=== PATIENT | male | born 1975 | race Caucasian/White ===

== ENCOUNTER → 2021-02-14 14:27 | Outpatient (CLI) | payer OTHER, SELFPAY ==
--- NOTE | ~2021-02-14 | MR_ITS ---
EXAMINATION: MR brain/brain stem wo con EXAM DATE: 02/14/2021 15:12 INDICATION: Frontal headaches for couple of months. TECHNIQUE: Magnetic resonance imaging (MRI) of the brain/brain stem obtained without contrast. Becca al T1, axial diffusion, gradient echo (T2*), T1, T2, FLAIR sequences obtained. There is no prior st udy for comparison. FINDINGS: There are no areas of restricted diffusion to suggest acute infarction. There is no acute hemorrhage seen on the T2*, a hemosiderin sensitive sequence. No intraparenchymal brain mass. The ve ntricles are normal in size. There are no extra-axial collections. Flow voids are seen in the cereb ral arteries on the T2-weighted sequences consistent with their expected patency. The orbits are unr emarkable. Soft tissue is unremarkable. IMPRESSION: 1. Unremarkable brain MRI examination. Reviewed, dictated and finalized at location A.
== END ==
PROVIDERS: PCP Family Medicine; Visit Provider Nurse Practitioner Family
DX: R51.9 Headache, unspecified (principal)
CPT/HCPCS: 70551

== ENCOUNTER 2024-07-01 02:12 | Day surgery (SDC) | payer OTHER, SELFPAY ==
[2024-06-10 15:22] VITALS: BMI 34.0
[2024-07-01 12:13] VITALS: BP 153/108; PULSE 95; RESP 18; TEMP 36.5; O2SAT 99
[2024-07-01] MEDS: LACTATED RINGERS 1,000 ML 150 ML IV CONT (12:22)
--- NOTE | 2024-07-01 12:59 | PM.HPGS ---
History of Present Illness History of Present Illness Consent: Risks, benefits, and alternatives have been discussed and questions answered. Patient agrees to proceed with procedure. Chief complaint: neoplasm screening Narrative: Trevor Pepper III is a 48 year old male here for first screening colonoscopy Review of Systems Review of Systems: All systems reviewed & are unremarkable except as noted in HPI and below PMFSH Past Medical History Medical History (Updated 11/30/23 @ 10:22 by SANTOSH Arriola) BMI 31.0-31.9,adult BMI 34.0-34.9,adult Eye pressure Vision changes Family History Family History Father COPD (chronic obstructive pulmonary disease) Diabetes mellitus Hypertension Tobacco abuse Mother Hypertension Hyperlipidemia Sibling No problems noted. Social History Social History Smoking status: Former smoker Smokeless tobacco user: other Second hand tobacco smoke exposure: Yes Smoking end date: 11/26/09 Alcohol intake: current Drinks per week: 5 Alcohol use details: DRINKS Substance use: never Substance use type: does not use Lack of Transportation: No Lack of Food: Never True Current Housing: I Have Housing Concerned About Future Housing: No Difficulty Paying Gas/Electric Bills: No Difficulty Paying for Meds: No Currently Unemployed: No Education: Master's Degree or Higher Difficulty w/ Childcare or Family Care: No Living arrangements: with family Occupation/Education: occupation 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) Gender identity (if verbalized by the patient): Male Spiritual care concerns: No Meds Home Medications and Allergies Home Medications Medication Instructions Recorded Confirmed Type buspirone 15 mg tablet 15 mg PO BID #60 tabs 02/04/24 07/01/24 Rx simvastatin 10 mg tablet See Rx Instructions .Route 04/06/24 07/01/24 Rx .COMPLEX #90 tabs testosterone 2 pump topical DAILY #75 grams 05/22/24 07/01/24 Rx mecobalamin (vitamin B12) 100 mcg PO DAILY 06/10/24 07/01/24 History multivitamin with minerals-folic 1 tablet PO DAILY 06/10/24 07/01/24 History acid 0.4 mg tablet alprazolam 0.5 mg tablet 0.5 mg PO QHS PRN anxiety #20 tabs 06/12/24 07/01/24 Rx Allergies Allergy/AdvReac Type Severity Reaction Status Date / Time No Known Allergies Allergy Verified 07/01/24 12:12 Vital Signs Vital Signs - 24 hr 07/01/24 12:13 Temperature 97.7 F Pulse Rate 95 Respiratory Rate 18 Blood Pressure 153/108 H Pulse Oximetry 99 Oxygen Delivery Room Air Exam Const: General: comfortable and no acute distress HENMT: Face/Nose/Sinus: Normal nares present Eyes: General: appearance normal, both eyes and all related structures Neck: Neck: no JVD Resp: Auscultation: clear to auscultation bilaterally Cardio: Rate: regular rate Rhythm: regular rhythm GI: Inspection: non-distended GI Palp: Yes Soft to palpation Skin: General skin exam: normal color Neuro: General: gait normal Speech: normal speech Extrem: General: normal to inspection Psych: Mental Status: mental status grossly normal Assessment and Plan Assessment and plan (1) Screen for colon cancer: Code(s): Z12.11 - Encounter for screening for malignant neoplasm of colon Status: Acute Assessment and Plan: colonoscopy
--- NOTE | 2024-07-01 13:07 | WPDANESEPP ---
Anes - Eval Pre Procedure Procedure: Operation Date: 07/01/24 13:30 Proposed Procedures p Screening Colonoscopy - Juma Charles MD Date/Time: 07/01/24 13:07 Pre Op Diagnosis: neoplasm screening Patient Data Age: 48 Gender: M Height: 1.75 m Weight: 103.2 kg Last Vital Signs Temp 36.5 C 07/01/24 12:13 Pulse 95 07/01/24 12:13 Resp 18 07/01/24 12:13 BP 153/108 H 07/01/24 12:13 Pulse Ox 99 07/01/24 12:13 O2 Del Method Room Air 07/01/24 12:13 Allergies Allergy/AdvReac Type Severity Reaction Status Date / Time No Known Allergies Allergy Verified 07/01/24 12:12 Home Medications Medication Instructions Recorded Confirmed Type buspirone 15 mg tablet 15 mg PO BID #60 tabs 02/04/24 07/01/24 Rx simvastatin 10 mg tablet See Rx Instructions .Route 04/06/24 07/01/24 Rx .COMPLEX #90 tabs testosterone 2 pump topical DAILY #75 grams 05/22/24 07/01/24 Rx mecobalamin (vitamin B12) 100 mcg PO DAILY 06/10/24 07/01/24 History multivitamin with minerals-folic 1 tablet PO DAILY 06/10/24 07/01/24 History acid 0.4 mg tablet alprazolam 0.5 mg tablet 0.5 mg PO QHS PRN anxiety #20 tabs 06/12/24 07/01/24 Rx Patient hx anesthesia problems: none Family hx anesthesia problems: none Results Review: All pre-operative results and documents have been reviewed as part of the pre-operative evaluation. [facility] Past Medical History Medical History (Updated 11/30/23 @ 10:22 by SANTOSH Arriola) BMI 31.0-31.9,adult BMI 34.0-34.9,adult Eye pressure Vision changes Family History Family History Father COPD (chronic obstructive pulmonary disease) Diabetes mellitus Hypertension Tobacco abuse Mother Hypertension Hyperlipidemia Sibling No problems noted. Social History Social History Smoking status: Former smoker Smokeless tobacco user: other Second hand tobacco smoke exposure: Yes Smoking end date: 11/26/09 Alcohol intake: current Drinks per week: 5 Alcohol use details: DRINKS Substance use: never Substance use type: does not use Lack of Transportation: No Lack of Food: Never True Current Housing: I Have Housing Concerned About Future Housing: No Difficulty Paying Gas/Electric Bills: No Difficulty Paying for Meds: No Currently Unemployed: No Education: Master's Degree or Higher Difficulty w/ Childcare or Family Care: No Living arrangements: with family Occupation/Education: occupation 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
--- NOTE | 2024-07-01 13:12 | WPDANESEPPF ---
Anes - Initial Pre Proc Eval Procedure: Operation Date: 07/01/24 13:30 Proposed Procedures p Screening Colonoscopy - Juma Charles MD Date/Time: 07/01/24 13:12 Surgeon: Juma Charles MD Pre Op Diagnosis: neoplasm screening Patient Data Age: 48 Gender: M Height: 1.75 m Weight: 103.2 kg Last Vital Signs Temp 36.5 C 07/01/24 12:13 Pulse 95 07/01/24 12:13 Resp 18 07/01/24 12:13 BP 153/108 H 07/01/24 12:13 Pulse Ox 99 07/01/24 12:13 O2 Del Method Room Air 07/01/24 12:13 Allergies Allergy/AdvReac Type Severity Reaction Status Date / Time No Known Allergies Allergy Verified 07/01/24 12:12 Home Medications Medication Instructions Recorded Confirmed Type buspirone 15 mg tablet 15 mg PO BID #60 tabs 02/04/24 07/01/24 Rx simvastatin 10 mg tablet See Rx Instructions .Route 04/06/24 07/01/24 Rx .COMPLEX #90 tabs testosterone 2 pump topical DAILY #75 grams 05/22/24 07/01/24 Rx mecobalamin (vitamin B12) 100 mcg PO DAILY 06/10/24 07/01/24 History multivitamin with minerals-folic 1 tablet PO DAILY 06/10/24 07/01/24 History acid 0.4 mg tablet alprazolam 0.5 mg tablet 0.5 mg PO QHS PRN anxiety #20 tabs 06/12/24 07/01/24 Rx Patient hx anesthesia problems: none Family hx anesthesia problems: none Results Review: All pre-operative results and documents have been reviewed as part of the pre-operative evaluation. [facility] Past Medical History Medical History (Updated 11/30/23 @ 10:22 by SANTOSH Arriola) BMI 31.0-31.9,adult BMI 34.0-34.9,adult Eye pressure Vision changes Family History Family History Father COPD (chronic obstructive pulmonary disease) Diabetes mellitus Hypertension Tobacco abuse Mother Hypertension Hyperlipidemia Sibling No problems noted. Social History Social History (Reviewed 11/30/23 @ 10:20 by ARVIND Arriola Smoking status: Former smoker Smokeless tobacco user: other Second hand tobacco smoke exposure: Yes Smoking end date: 11/26/09 Alcohol intake: current Drinks per week: 5 Alcohol use details: DRINKS Substance use: never Substance use type: does not use Lack of Transportation: No Lack of Food: Never True Current Housing: I Have Housing Concerned About Future Housing: No Difficulty Paying Gas/Electric Bills: No Difficulty Paying for Meds: No Currently Unemployed: No Education: Master's Degree or Higher Difficulty w/ Childcare or Family Care: No Living arrangements: with family Occupation/Education: occupation 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 Informed Consent: The patient's anesthetic plan and its attendant risks and benefits were discussed with the patient/family/POA. Questions were solicited and answers provided to the satisfaction of the patient/family/POA.
[2024-07-01 13:25] VITALS: BP 117/71; PULSE 103; RESP 25; O2SAT 99
[2024-07-01 13:35] VITALS: BP 132/93; PULSE 87; RESP 22; O2SAT 98
[2024-07-01 13:45] VITALS: BP 135/94; PULSE 78; RESP 18; O2SAT 99
== END 2024-07-01 13:51 | disposition home or self-care (01) ==
PROVIDERS: PCP Family Medicine; Visit Provider Internal Medicine Gastroenterology
PROC: 0DJD8ZZ Inspection of Lower Intestinal Tract, Via Natural or Artificial Opening Endoscopic (ICD-10-PCS; CPT 45378; principal; 2024-07-01 13:30)
DX: Z12.11 Encounter for screening for malignant neoplasm of colon (principal); K64.8 Other hemorrhoids; Z87.891 Personal history of nicotine dependence
CPT/HCPCS: 45378; J2704; J7120

== ENCOUNTER 2025-04-27 09:00 | Outpatient (CLI) | payer OTHER, SELFPAY ==
--- NOTE | 2025-04-27 09:02 | EST_ITS ---
Patient Info Name: Trevor Pepper Age: 49 years : 1975 Gender: Male Ht: 69 in Wt: 225 lbs BSA: 2.26 m2 HR: 65 bpm BP: 140 / 84 mmHg Exam Date: 04/27/2025 9:02 AM Patient Status: O Admit Date: 04/27/2025 Exam Type: CA stress test treadmill A treadmill exercise stress test was performed. Staff Attending Provider: Rupinder Banuelos Exercise Technologist: Camilla Bolaños Exercise Physician: Josep Wayne DO Summary 1. 1. Negative Yanick exercise stress test for ischemic ST changes by ECG criteria. 2. 2. Good functional capacity, achieving 12 METs of workload. 3. 3. Baseline hypertension with hypertensive response to exercise. 4. 4. Appropriate HR response to exercise. 5. 5. Appropriate HR recovery at 1 minute post exercise. 6. 6. No imaging with stress testing. 7. 7. Patient informed of the above results. Protocol: Yanick Stress ECG Details Stage: REST Duration (min): 1 min : 2 sec Speed (mph): 0.0 Grade (%): 0 HR (bpm): 60 SBP (mmHg): 140 DBP (mmHg): 84 METS: --- Stage: REST Duration (min): 10 min : 13 sec Speed (mph): 0.0 Grade (%): 0 HR (bpm): 72 SBP (mmHg): 140 DBP (mmHg): 84 METS: --- Stage: STAGE 1 Duration (min): 1 min : 0 sec Speed (mph): 1.7 Grade (%): 10 HR (bpm): 98 SBP (mmHg): 140 DBP (mmHg): 84 METS: --- Stage: STAGE 1 Duration (min): 2 min : 0 sec Speed (mph): 1.7 Grade (%): 10 HR (bpm): 106 SBP (mmHg): 140 DBP (mmHg): 84 METS: --- Stage: STAGE 1 Duration (min): 3 min : 0 sec Speed (mph): 1.7 Grade (%): 10 HR (bpm): 109 SBP (mmHg): 152 DBP (mmHg): 77 METS: --- Stage: STAGE 2 Duration (min): 1 min : 0 sec Speed (mph): 2.5 Grade (%): 12 HR (bpm): 117 SBP (mmHg): 152 DBP (mmHg): 77 METS: --- Stage: STAGE 2 Duration (min): 2 min : 0 sec Speed (mph): 2.5 Grade (%): 12 HR (bpm): 123 SBP (mmHg): 165 DBP (mmHg): 77 METS: --- Stage: STAGE 2 Duration (min): 3 min : 0 sec Speed (mph): 2.5 Grade (%): 12 HR (bpm): 123 SBP (mmHg): 165 DBP (mmHg): 77 METS: --- Stage: STAGE 3 Duration (min): 1 min : 0 sec Speed (mph): 3.4 Grade (%): 14 HR (bpm): 134 SBP (mmHg): 161 DBP (mmHg): 79 METS: --- Stage: STAGE 3 Duration (min): 2 min : 0 sec Speed (mph): 3.4 Grade (%): 14 HR (bpm): 140 SBP (mmHg): 161 DBP (mmHg): 79 METS: --- Stage: STAGE 3 Duration (min): 3 min : 0 sec Speed (mph): 3.4 Grade (%): 14 HR (bpm): 143 SBP (mmHg): 191 DBP (mmHg): 79 METS: --- Stage: STAGE 4 Duration (min): 1 min : 0 sec Speed (mph): 4.2 Grade (%): 16 HR (bpm): 157 SBP (mmHg): 191 DBP (mmHg): 79 METS: --- Stage: STAGE 4 Duration (min): 2 min : 0 sec Speed (mph): 4.2 Grade (%): 16 HR (bpm): 162 SBP (mmHg): 200 DBP (mmHg): 90 METS: --- Stage: STAGE 4 Duration (min): 2 min : 0 sec Speed (mph): 4.2 Grade (%): 16 HR (bpm): 162 SBP (mmHg): 200 DBP (mmHg): 90 METS: --- Stage: RECOVERY Duration (min): 0 min : 59 sec Speed (mph): 0.0 Grade (%): 0 HR (bpm): 125 SBP (mmHg): 200 DBP (mmHg): 90 METS: --- Stage: RECOVERY Duration (min): 1 min : 59 sec Speed (mph): 0.0 Grade (%): 0 HR (bpm): 99 SBP (mmHg): 200 DBP (mmHg): 90 METS: --- Stage: RECOVERY Duration (min): 2 min : 59 sec Speed (mph): 0.0 Grade (%): 0 HR (bpm): 89 SBP (mmHg): 231 DBP (mmHg): 69 METS: --- Stage: RECOVERY Duration (min): 3 min : 59 sec Speed (mph): 0.0 Grade (%): 0 HR (bpm): 94 SBP (mmHg): 231 DBP (mmHg): 69 METS: --- Stage: RECOVERY Duration (min): 4 min : 59 sec Speed (mph): 0.0 Grade (%): 0 HR (bpm): 100 SBP (mmHg): 216 DBP (mmHg): 74 METS: --- Stage: RECOVERY Duration (min): 5 min : 2 sec Speed (mph): 0.0 Grade (%): 0 HR (bpm): 100 SBP (mmHg): 216 DBP (mmHg): 74 METS: --- Rest HR: 72 bpm Peak HR: 163 bpm Rest Sys BP: 140 mmHg Peak Sys BP: 231 mmHg Max Pred HR: 173 bpm % Max Pred HR: 94 % Target HR: 147 bpm Max RPP: 37,653 bpm*mmHg Land Score: 6 BP Response: Patient exhibited a hypertensive response with stress Termination Reason: Reached target heart rate or workload Cardiac Symptoms: Shortness of breath Max ST Seg Deviation: -1.10 mm Total Time: 11 min : 0 sec Rest Keyes BP: 84 mmHg Peak Keyes BP: 69 mmHg Angina Score: None Total METS: 12.1 Resting ECG Sinus rhythm. Stress ECG No ST changes. Arrhythmias None. Report Signatures
--- OUTSIDE RECORDS SUMMARY | 2025-04-27 09:15 | XMS_ITS | Clinical Summary ---
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 Gender Identity Not on file Sexual Orientation Not on file Plan of Treatment Health Maintenance Due Date Last Done Comments Hepatitis C Virus (HCV) Screening 1975 TdaP Immunization 1975 Hepatitis B Immunization (1 of 3 - 19+ 3-dose series) 1996 Colonoscopy 2022 Colorectal Cancer Screening 2022 Influenza Immunization (#1) 2024 09/17/2020 SARS-COV-2 Immunization (2 - 2023- season) 2024 10/18/2021 Respiratory Syncytial Virus (RSV) Immunization (Adult) (1 - 1-dose 75+ series) 2052 Meningococcal Immunization (ACWY) Aged Out No longer eligible based on patient's age to complete this topic Pneumococcal Immunization Combined Aged Out No longer eligible based on patient's age to complete this topic Rotavirus Immunization Aged Out No lo nger eligible based on patient's age to complete this topic
--- OUTSIDE RECORDS SUMMARY | 2025-04-27 09:15 | XMS_ITS | Referral Summary ---
Author Organization [facility] Address [address] [place] [phone] Care Team Providers Care Select Banker Name Role Phone Tirso Bello MD Primary Care Provider [phone] Social History Tobacco Use Types Packs/Day Years Used Date Smoking Tobacco: Never Assessed Personal Safety Answer Date Recorded Getting School Help Needed Not on file 02/09 Sex and Gender Information Value Date Recorded Sex Assigned at Not on file Legal Sex Male 10:32 AM CDT Gender Identity Not on file Sexual Orientation Not on file Plan of Treatment Not on file Insurance [facility] H[facility]/PPO Address: [id number] [place] [address] Care Teams Select Banker Relationship Specialty Start Date End Date Tirso Bello MD PCP - General Family Medicine 05/20/18
--- OUTSIDE RECORDS SUMMARY | 2025-04-27 09:15 | XMS_ITS | Clinical Summary ---
Author Organization [facility] Address [address] [place] [address] Care Team Providers Care Hooker Operator Name Role Phone Unavailable Primary Care Provider Unavailabl e Source Comments [facility],non-owned Affiliates and Associated Physician Practices is amultiple site organization consisting of ambulatory clinics and hospital sitesin [place], [place], [place] and [place]. This disclosure is being madepursuant to the Care Everywhere program and may not contain all information available regarding this patient. Last updated 18.[facility] [place] Immunizations Immunization Administration Dates Next Due INFLUENZA VACCINE, QUADR. (F LUZONE; FLULAVAL; FLUARIX; AFLURIA QUADRIVALENT; 6MO+), 0.5 ML (IIV4) 09/17/2020 Social History Tobacco Use Types Packs/Day Years Used Date Smoking Tobacco: Never Assessed Sex and Gender Information Value Date Recorded Sex Assigned at Not on file Legal Sex Male 2:44 PM CDT Gender Identity Not on file Sexual Orientation Not on file Plan of Treatment Health Maintenance Due Date Last Done Comments COLOGUARD (AGES 45-75) - COL ON CA SCREENING 1975 COLON MONITORING 1975 COLONOSCOPY - COLON CA SCREENING 1977 CT COLONOGRAPHY - COLON CA SCREENING 1975 Colorectal Cancer Screening 1975 FIT - COLON CA SCREENING 1975 FLEX SIG - COLON CA SCREENING 1975 LIPID TESTING 1975 HIV SCREENING 1992 HEPATITIS C SCREENING 12/15/1995 DTAP/TDAP/TD VACCINES (1 - Tdap) 1996 HEPATITIS B VACCINE (1 of 3 - 19+ 3-dose series) 1996 COVID-19 VACCINE (2023-2 5 season) 2024 DEPRESSION SCREENING 11/26/2024 INFLUENZA VACCINE (Season Ended) 2025 09/17/20 20 ZOSTER VACCINE (1 of 2) 2027 HIB VACCINE Aged Out No longer eligi ble based on patient's age to complete this topic HPV VACCINE Aged Out No longer eligi ble based on patient's age to complete this topic MENINGOCOCCAL (Group B) VACC INE SHARED DECISION-MAKING Aged Out No longer eligibl e based on patient's age to complete this topic MENINGOCOCCAL GROUPS A/C/Y/W VACCINE Aged Out No longer eligible b ased on patient's age to complete this topic PNEUMOCOCCAL VACCINE Aged Out No long er eligible based on patient's age to complete this topic Insurance [facility] [place] [address]
--- OUTSIDE RECORDS SUMMARY | 2025-04-27 09:15 | XMS_ITS | Clinical Summary ---
Author Organization [facility] Address [address] [place] [phone] Care Team Providers Care Staff Radiologist Name Role Phone Tirso Bello MD Primary Care Provider [phone] Social History Tobacco Use Types Packs/Day Years [...] Treatment Not on file Insurance [facility]/PPO Address: [address] [address] Care Teams Staff Radiologist Relationship Specialty Start Date End Date Tirso Bello MD PCP - General Family Medicine 05/20/18
== END 2025-04-27 09:01 | disposition home or self-care (01) ==
PROVIDERS: PCP Family Medicine; Visit Provider Nurse Practitioner Family
DX: R06.02 Shortness of breath (principal); Z82.49 Family history of ischemic heart disease and other diseases of the circulatory system; E78.5 Hyperlipidemia, unspecified; R53.83 Other fatigue
CPT/HCPCS: 93017